=== PATIENT | female | born 1945 | race Caucasian/White ===

== ENCOUNTER 2023-11-21 16:11 | Emergency (ER) | payer MEDICARE, BC ==
[~2023-11-21] VITALS: Ht 162.6 cm; Wt 63.6 kg
[~2023-11-21 16:11] MED LIST: ACET-1059 PO; ATEN50TA8 PO; ATOR40TA72 PO; CLON-369 PO; DULO30CA52 PO; HYDR50TA65 PO; INSU300I3 SQ; LIRA0.6P2 SQ; METF-1203 PO; TRAZ-251 PO
[2023-11-21 16:15] VITALS: TEMP 97.8
[2023-11-21] MEDS: LIDOcaine 1% W/epiNEPHrine 1:100,000 20ml vial IJ ONE (16:51)
[2023-11-21] MEDS: HYDROcodone/acetaminophen 10/325mg tab PO ONE (16:52)
[2023-11-21] MEDS ORDERED: HYDR-3973 PO (17:51)
[2023-11-21] MEDS: TETanus/Pertussis (Acell)/Diphther VAC/PF (Tdap-Adult) 0.5ml syringe IMVAC ONE (18:06)
[2023-11-21 18:19] VITALS: BP 116/82; PULSE 80; RESP 16; O2SAT 96
== END 2023-11-21 18:31 | disposition home or self-care (01) ==
LOC: ER 16:11
DX: S01.81XA Laceration without foreign body of other part of head, initial encounter (principal); S13.4XXA Sprain of ligaments of cervical spine, initial encounter; S09.8XXA Other specified injuries of head, initial encounter; M54.2 Cervicalgia; E11.9 Type 2 diabetes mellitus without complications; Z79.84 Long term (current) use of oral hypoglycemic drugs; Z79.4 Long term (current) use of insulin; Z98.890 Other specified postprocedural states; Z86.73 Personal history of transient ischemic attack (TIA), and cerebral infarction without residual deficits; Z79.899 Other long term (current) drug therapy; W18.39XA Other fall on same level, initial encounter; Y93.89 Activity, other specified; Y92.89 Other specified places as the place of occurrence of the external cause; Y99.8 Other external cause status
CPT/HCPCS: 12013; 70450; 72125; 90715; 99285; A6402; G0008; J7030; 90471; A6449